=== PATIENT | female | born 1980 | race Caucasian/White ===

== ENCOUNTER 2018-05-22 12:17 | Outpatient (CLI) | payer SELFPAY ==
[2018-05-22] MEDS ORDERED: LACTATED RINGERS 500 ML IV ONE (13:35)
[2018-05-22 14:02] LABS: Bacteria,Urine 1+ /HPF (Negative); Bilirubin,Urine NEG (Negative); Blood,Urine NEG (Negative); Color,Urine Straw (Yellow); Protein,Urine <15 mg/dL mg/dL (Negative); Urobilinogen,Urine < 2.0 mg/dL (<2.0); WBC,Urine < 1.0 /HPF (0.0-6.0)
[2018-05-22 14:48] LABS: Hematocrit 35.3 % (30.3-42.9); Hemoglobin 12.5 gm/dl (10.1-14.3); Mean Corpuscular HGB Conc 35 % (30-34); Mean Corpuscular Volume 95 fl (79-97); Platelet Count 238 K/mm3 (140-440); Red Blood Count 3.73 M/mm3 (3.65-5.03); Red Cell Distribution Width 13.8 % (13.2-15.2)
[2018-05-22 15:21] LABS: Alanine Aminotransferase 16 units/L (7-56); Uric Acid 3.5 mg/dL (3.5-7.6)
[2018-05-22 17:08] VITALS: BP 124/64
== END 2018-05-22 18:01 | disposition home or self-care (01) ==
LOC: TRG 12:17
PROVIDERS: ATTEND Obstetrics & Gynecology
DX: O47.03 False labor before 37 completed weeks of gestation, third trimester (principal); Z3A.33 33 weeks gestation of pregnancy
CPT/HCPCS: 36415; 59025; 81001; 82565; 83615; 84450; 84460; 84550; 85027

== ENCOUNTER 2018-06-06 11:40 | Observation (INO) | payer MEDICAID, OTHER ==
[2018-06-06] MEDS ORDERED: LACTATED RINGERS 500 ML IV ONE (11:55)
[2018-06-06 12:28] LABS: Bacteria,Urine 1+ /HPF (Negative); Bilirubin,Urine NEG (Negative); Blood,Urine NEG (Negative); Color,Urine Yellow (Yellow); Mucus,Urine FEW /HPF; Protein,Urine <15 mg/dL mg/dL (Negative); Urobilinogen,Urine < 2.0 mg/dL (<2.0)
[2018-06-06 13:05] LABS: Hematocrit 36.9 % (30.3-42.9); Mean Corpuscular HGB Conc 35 % (30-34); Mean Corpuscular Volume 94 fl (79-97); Platelet Count 242 K/mm3 (140-440); Red Blood Count 3.94 M/mm3 (3.65-5.03); Red Cell Distribution Width 13.6 % (13.2-15.2)
[2018-06-06 13:29] LABS: Alanine Aminotransferase 18 units/L (7-56); Uric Acid 3.5 mg/dL (3.5-7.6)
--- NOTE | 2018-06-06 15:00 | Ultrasound Report ---
ULTRASOUND BIOPHYSICAL PROFILE: History: well being Technique: Transabdominal ultrasound with Doppler interrogation. 0 - breathing movements 2 - movements 2 - posture and tone 2 - Qualitative amniotic fluid volume 6 - TOTAL SCORE OF POSSIBLE 8 Heart Rate (bpm) 137
[2018-06-06] MEDS ORDERED: LACTATED RINGERS 1,000 ML ONE (16:43)
--- NOTE | 2018-06-06 22:19 | History and Physical Report ---
History of Present Illness Date of admission: 06/06/18 11:55 Chief complaint: sent from clinic for evaluation for preeclampsia due to elevated blood pressures History of present illness: 37yo G P at 36 /7 weeks transferred from clinic due to elevated blood pressures for evaluation of preeclampsia. She is a late transfer from [facility]. She has seen several offices this and states her blood pressures are only high when she is in clinic because she is nervous. She has declined maternal medicine referral due to financial reasons. She reports good movement, no loss of fluid, no visual changes, no headaches, no RUQ pain and no vaginal bleeding. Past History Past Surgical History: section - Obstetrical History : 3 Medications and Allergies Allergies Allergy/AdvReac Type Severity Reaction Status Date / Time No Known Allergies Allergy Verified 05/22/18 13:34 - Vital Signs Vital signs: Vital Signs Temp Pulse Resp BP 98.6 F 107 H 20 139/82 06/06/18 12:11 06/06/18 12:11 06/06/18 12:11 06/06/18 12:11 Temp Pulse Resp BP Pulse Ox 97.9 F 82 16 120/68 06/06/18 19:45 06/06/18 21:37 06/06/18 16:56 06/06/18 21:37 - Obstetrical FHR: category 1 Results Result Diagrams: 06/06/18 12:40 06/06/18 12:40 Abnormal lab results 06/06/18 06/06/18 06/06/18 Range/Units 11:54 12:40 12:40 MCH 33 H (28-32) pg MCHC 35 H (30-34) % Creatinine 0.4 L (0.7-1.2) mg/dL Lactate Dehydrogenase 183 H (91-180) units/L Urine pH 8.0 H (5.0-7.0) Urine WBC (Auto) 7.0 H (0.0-6.0) /HPF All other labs normal. Assessment and Plan - Patient Problems (1) 36 weeks gestation of Current Visit: Yes Status: Acute Plan to address problem: BPP 6/8 (-2 breathing) Repeat BPP on Tuesday. If remains 6/8 will do repeat section. (2) Chronic hypertension Current Visit: Yes Status: Acute Plan to address problem: PIH labs 24hr urine for protein UA doppler Repeat BPP tomorrow (3) Previous section Current Visit: Yes Status: Acute
--- NOTE | 2018-06-07 10:00 | Progress Note ---
Assessment and Plan - Patient Problems (1) 36 weeks gestation of Current Visit: Yes Status: Acute (2) Chronic hypertension Current Visit: Yes Status: Acute Plan to address problem: BP is stable. Continue BP monitoring. Continue aldomet 500 mg PO BID and norvasc 5mg PO QD. Will repeat BPP today. (3) Previous section Current Visit: Yes Status: Acute Subjective - Subjective Date of service: 06/07/18 Principal diagnosis: SIUP at 36 weeks and 1 day gestation with HTN Interval history: Patient is a 37 year old who was admitted for observation last night due to elevated BP. She was seen in the office and her BP was in the 150's/100's. She has been on aldomet and norvasc but she said that someone from the front desk assistant told her last week not to take the aldomet and to only take the norvasc. Since admission, she was restarted on her aldomet and her BP has been stable. Toxemia labs were normal. BPP was 6/8 (-2 for breathing). tracing has been CAT1. This AM, she denies any headache or visual changes. Objective - Vital Signs Vital Signs: Vital Signs - 12hr 06/07/18 06/07/18 06/07/18 06:06 06:25 09:36 Pulse Rate 75 75 105 H Blood Pressure 122/79 167/87 Blood Pressure 122/75 [Left] 06/07/18 06/07/18 06/07/18 09:38 09:44 09:54 Pulse Rate 88 83 85 Blood Pressure 148/73 133/72 133/73 Blood Pressure [Left] - Exam Cardiovascular: Normal S1, Normal S2 Lungs: Clear to auscultation Vulva: both: normal FHR: category 1 Uterine Contraction Monitor Mode: External Uterine Contraction Pattern: Absent Deep Tendon Reflex Grade: Normal +2 - Labs Labs: Abnormal Labs 06/06/18 06/06/18 06/06/18 11:54 12:40 12:40 MCH 33 H MCHC 35 H Creatinine 0.4 L Lactate Dehydrogenase 183 H Urine pH 8.0 H Urine WBC (Auto) 7.0 H Laboratory Results - last 24 hr 06/06/18 06/06/18 06/06/18 11:54 12:40 12:40 WBC 9.2 RBC 3.94 Hgb 13.0 Hct 36.9 MCV 94 MCH 33 H MCHC 35 H RDW 13.6 Plt Count 242 Creatinine 0.4 L Estimated GFR > 60 Uric Acid 3.5 AST 17 ALT 18 Lactate Dehydrogenase 183 H Urine Color Yellow Urine Turbidity Clear Urine pH 8.0 H Ur Specific [place] 1.008 Urine Protein <15 mg/dl Urine Glucose (UA) Neg Urine Ketones Neg Urine Blood Neg Urine Nitrite Neg Urine Bilirubin Neg Urine Urobilinogen < 2.0 Ur Leukocyte Esterase Lg Urine WBC (Auto) 7.0 H Urine RBC (Auto) 1.0 U Epithel Cells (Auto) 4.0 Urine Bacteria (Auto) 1+ Urine Mucus Few - Results US- obstetric: report reviewed
[2018-06-07 16:22] VITALS: BP 124/64
--- NOTE | 2018-06-08 05:53 | Ultrasound Report ---
PROCEDURE: US OB VELOCIMETRY UMBILICAL ART TECHNIQUE: Real-time limited sonographic examination was performed for evaluation of umbilical Doppl er for each fetus with image documentation (1 or more fetuses). HISTORY: chronic hypertension COMPARISONS: None FINDINGS: The umbilical artery S/D ratio is 2.4 with normal waveforms. Resistive index is 0.58. IMPRESSION: The umbilical artery S/D ratio is 2.4 with normal waveforms. Resistive index is 0.58. This document is electronically signed by Benjamin Perdue MD., June 08 2018 05:51:37 AM ET
--- NOTE | 2018-06-08 05:55 | Ultrasound Report ---
PROCEDURE: US OB BPP WO NON-STRESS TECHNIQUE: Real-time limited sonographic examination was performed for evaluation of biophysical pro file for each fetus with image documentation (1 or more fetuses). HISTORY: well being COMPARISONS: None FINDINGS: breathing movements: 2. movements: 2. posture and tone: 2. Qualitative amniotic fluid volume: 2 The heart rate is 152 bpm. IMPRESSION: Total score: 8/8. This document is electronically signed by Benjamin Perdue MD., June 08 2018 05:53:18 AM ET
== END 2018-06-07 18:32 | disposition home or self-care (01) ==
LOC: TRG 11:40 → LD 11:55 → TRG 11:55
PROVIDERS: ADMIT Obstetrics & Gynecology; ATTEND Obstetrics & Gynecology
DX: O10.913 Unspecified pre-existing hypertension complicating pregnancy, third trimester (principal); Z3A.36 36 weeks gestation of pregnancy; Z98.890 Other specified postprocedural states
CPT/HCPCS: 36415; 76819; 76820; 81001; 82565; 83615; 84450; 84460; 84550; 85027; G0378; J7120